=== PATIENT | male | born 1995 | race Caucasian/White ===

== ENCOUNTER 2021-03-02 19:58 | Emergency (ER) | payer SELFPAY ==
[2021-03-02 20:08] VITALS: BP 144/96; PULSE 112; RESP 16; TEMP 36.7; O2SAT 97; BMI 28.7
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
[2021-03-02 21:44] VITALS: RESP 16
== END 2021-03-02 21:45 | disposition home or self-care (01) ==
PROVIDERS: Emergency Provider Nurse Practitioner Family
DX: S01.81XA Laceration without foreign body of other part of head, initial encounter (principal); Y04.2XXA Assault by strike against or bumped into by another person, initial encounter
CPT/HCPCS: 12011; 99281

== ENCOUNTER 2021-05-31 16:48 | Emergency (ER) | payer SELFPAY ==
[2021-05-31 17:13] VITALS: BP 102/69; PULSE 114; RESP 18; TEMP 36.6; O2SAT 99; BMI 31.4
--- NOTE | 2021-05-31 19:13 | W.ED.HA ---
HPI - Headache General: Chief Complaint: Headache Stated Complaint: Severe Headache Time Seen by Provider: 05/31/21 19:13 History of Present Illness: HPI Narrative: 26-year-old male patient comes in today with migraine headache since last night. Patient reports similar to his previous migraines. Patient last episode that he has had seek medical treatment for a migraine at this facility was 2011. Patient states that she is able to take [id number] medication and sleep it off. Patient today was more concerned about whether or not he may be developing COVID-19. Besides headache and nausea vomiting patient denies any other symptoms patient appears mildly unwell but not toxic. Patient appears in mild to moderate pain Associated symptoms: Reports nausea and vomiting Review of Systems General: Reports: 10 or more systems reviewed and unremarkable except in HPI and below GI: Reports: nausea and vomiting Neuro: Reports: headache(s) Physical Exam Const: COMMON NORMALS: no acute distress and patient oriented x3 GENERAL APPEARANCE: cooperative HENMT: COMMON NORMALS: normocephalic and Normal external nose present HEAD & SCALP: normal to inspection and normocephalic NOSE: Normal external nose present MOUTH: Normal oral and palatal mucosa present Eye: GENERAL EYE: appearance normal, both eyes and all related structures Neck/C-Spine: COMMON NORMALS: full ROM Lymph: LYMPHATIC: no lymphadenopathy noted Chest: COMMONS NORMALS: normal inspection of the chest Resp: COMMON NORMALS: normal respiratory effort EFFORT & INSPECTION: Yes able to speak in complete sentences Cardio: COMMON NORMALS: regular rate and regular rhythm RATE: regular rate RHYTHM: regular rhythm GI: COMMON NORMALS: non-tender : COMMON NORMALS: Yes no CVA tenderness BLADDER/KIDNEY EXAM: Yes no CVA tenderness Back/Pelvis: COMMON NORMALS: no CVA tenderness and thoracic and lumbar spine normal to inspection Extremity: COMMON NORMALS: normal to inspection Neuro: COMMON NORMALS: patient oriented x3 and moves all extremities Psych: COMMON NORMALS: mental status grossly normal and cooperative Skin: COMMON NORMALS: no rashes or lesions noted GENERAL SKIN EXAM: no rashes or lesions noted Course ED course: 2100, patient reports that headache is better but not completely resolve but wishes to go home. Reviewed Covid test with patient. Vital Signs: Vital signs: Vital Signs Temperature 97.8 F 05/31/21 17:13 Pulse Rate 114 H 05/31/21 17:13 Respiratory Rate 18 05/31/21 17:13 Blood Pressure 102/69 05/31/21 17:13 Pulse Oximetry 99 05/31/21 17:13 MDM - Headache MDM Narrative: Medical decision making narrative: Patient comes in today for migraine headache. On exam patient is alert oriented. No focal neuro deficits noted skin is warm and dry. No facial droop. Oropharyngeal cavity is open. Respirations are even lungs. Differential diagnosis includes migraine headache, tension headache, viral syndrome. COVID-19 screening was negative. Patient was given 10 mg of Reglan, 12-1/2 mg of diphenhydramine, 15 mg ketorolac, and 4 mg of dexamethasone for migraine cocktail. Patient had improvement of pain and discomfort from migraine headache. Patient did report that for the most part the headache was gone but he did not want any further medication and wanted to go home. Patient was instructed on COVID-19 screening test with recommendations for repeat testing for any fever or worsening upper respiratory symptoms. Patient reported understanding and agreed to plan. Lab Data: Labs: Lab Results 05/31/21 Range/Units 19:56 SARS-CoV-2 Ag (Rap id) Negative (Negative) Discharge Plan Discharge Patient Disposition: Home Clinical Impression: Migraine Qualifiers: Migraine type: unspecified Status migrainosus presence: without status migrainosus Intractability: not intractable Qualified Code(s): G43.909 - Migraine, unspecified, not intractable, without status migrainosus Condition: Stable Prescriptions: New promethazine 25 mg tablet 25 mg PO TID PRN (Reason: migraine headache) Qty: 10 RF: 0 Discharge Orders: Discharge ED (Routine); Ordered 05/31/21 Ordered By: Jonathan Calvert Discharge Diet: Usual diet Discharge Activity: Increase activity as tolerated Patient Instructions: Migraine Headache (ED), Opioid Safety Activity Restrictions/Additional Instructions: Home and rest. Drink plenty of water. Use promethazine with 800 mg of ibuprofen, Aleve or Motrin, or 2 tablets of Aleve, naproxen, at onset of migraine headache to abort headache. Follow-up with primary care for further instructions. Return to the ER for new concerns. If you start running a fever or having increasing upper respiratory symptoms you may still need to be reevaluated for COVID-19. Stand Alone Forms: Work/School Release Coding Level of Care Code ED Business Development Associate for [employer] Fwd Exam Comprehensive
[2021-05-31] MEDS: dexamethasone 4 mg/mL INJ IVP (19:43)
[2021-05-31] MEDS: diphenhydrAMINE 50 mg/mL SDV 1mL 12.5 MG IVP (19:44)
[2021-05-31] MEDS: ketorolac 30 mg/mL INJ 15 MG IVP (19:46)
[2021-05-31] MEDS: metoclopramide 5 mg/mL SDV 2 mL 10 MG IVP (19:47)
[2021-05-31] MEDS: sodium chloride 0.9% 1,000 ML 999 ML IV (19:49)
[2021-05-31 20:44] LABS: SARS Covid-2 Antigen Negative (Negative)
[2021-05-31 21:38] VITALS: BP 105/60; PULSE 105; RESP 16; O2SAT 100
== END 2021-05-31 21:39 | disposition home or self-care (01) ==
PROVIDERS: Emergency Provider Nurse Practitioner Family
DX: G43.909 Migraine, unspecified, not intractable, without status migrainosus (principal); Z20.822 Contact with and (suspected) exposure to COVID-19
CPT/HCPCS: 87426; 96361; 96374; 96375; 99283; J1100; J1200; J1885; J2765; J7030